=== PATIENT | male | born 1995 ===

== ENCOUNTER 2017-05-13 16:22 | Emergency (ER) | payer BC ==
--- NOTE | 2017-05-13 19:05 | Emergency Department Record ---
History of Present Illness - General Chief complaint: Extremity Problem Stated complaint: INGROWN TOENAIL ON LEFT FOOT Time Seen by Provider: 05/13/17 19:03 Source: Patient Mode of Arrival: Ambulatory Limitations: No limitations - History of Present Illness Initial comments: 21 yo male presents to ED with a CC of an ingrown toenail to the left great toe for several weeks. Patient reports that he has been performing warm soaks to the toe intermittently, patient denies fevers, chills, or drainage from the toe. Patient reports a history of similar symptoms in the past as well, denies health problems at her baseline. MD Complaint: Extremity pain Onset/Timin -: Week(s) Location: Left, Foot History of Same: Yes Severity scale (1-10): 5 Quality: Aching Consistency: Constant, Getting worse Improves with: Rest - Related Data Previous Rx's Medication Instructions Recorded Cephalexin [Keflex] 500 mg PO QID #28 cap 05/13/17 Allergies Allergy/AdvReac Type Severity Reaction Status Date / Time No Known Drug Allergies Allergy Verified 05/13/17 16:55 Travel Screening - Travel/Exposure Within Last 30 Days Have you traveled within the last 30 days?: No - Travel/Exposure Within Last Year Have you traveled outside the [place] in the last year?: No - Additonal Travel Details Have you been exposed to anyone with a communicable illness?: No - Travel Symptoms Symptom Screening: None Review of Systems Constitutional: Denies: Chills, Fever, Malaise, Night sweats Eyes: Denies: Eye discharge, Eye pain ENT: Denies: Congestion, Ear pain, Epistaxis Respiratory: Denies: Cough, Dyspnea Cardiovascular: Denies: Chest pain, Dyspnea on exertion Endocrine: Denies: Fatigue, Heat or cold intolerance Gastrointestinal: Denies: Constipation, Vomiting Genitourinary: Denies: Incontinence, Retention Musculoskeletal: Reports: Other (left great toe pain). Denies: Arthralgia, Back pain, Gout, Joint swelling Skin: Denies: Bruising, Change in color Neurological: Denies: Abnormal gait, Confusion, Headache, Numbness, Tingling, Tremors Psychiatric: Denies: Anxiety Hematological/Lymphatic: Denies: Anemia, Blood Clots Past Medical History - SOCIAL HISTORY Smoking Status: Never smoker Alcohol Use: None Drug Use: None - RESPIRATORY Hx Asthma: Yes (sports induced) - CARDIOVASCULAR Hx Cardio Disorders: No - NEURO Hx Neuro Disorders: No - GI Hx GI Disorders: No - Hx Genitourinary Disorders: No - ENDOCRINE Hx Endocrine Disorders: No - MUSCULOSKELETAL Hx Musculoskeletal Disorders: No - PSYCH Hx Psych Problems: No - HEMATOLOGY/ONCOLOGY Hx Hematology/Oncology Disorders: No Family Medical History Any Significant Family History?: Yes Physical Exam - General General Appearance: Alert, Oriented x3, Cooperative, No acute distress Limitations: No limitations - Head Head exam: Atraumatic, Normocephalic, Normal inspection Head exam detail: negative: Abrasion, Contusion, Patricio's sign, General tenderness, Hematoma, Laceration - Eye Eye exam: Normal appearance. negative: Conjunctival injection, Periorbital swelling, Periorbital tenderness, Scleral icterus - ENT Ear exam: negative: Auricular hematoma, Auricular trauma Nasal Exam: negative: Active bleeding, Discharge, Dried blood, Foreign body Mouth exam: negative: Drooling, Laceration, Muffled voice, Tongue elevation - Neck Neck exam: Normal inspection. negative: Meningismus, Tenderness - Respiratory Respiratory exam: Normal lung sounds bilaterally. negative: Respiratory distress, Rhonchi, Stridor, Wheezes - Cardiovascular Cardiovascular Exam: Regular rate, Normal rhythm, Normal heart sounds - GI/Abdominal GI/Abdominal exam: Soft. negative: Distended, Rebound, Rigid, Tenderness - Rectal Rectal exam: Deferred - exam: Deferred - Extremities Extremities exam: Tenderness, Other (TTP resulting from an ingrown toenail to the left lateral great toenail, mild erythema is present, no evidence for paronychia or abscess on exmaination). negative: Calf tenderness, Pedal edema - Back Back exam: Denies: CVA tenderness (R), CVA tenderness (L) - Neurological Neurological exam: Alert, Normal gait, Oriented X3 - Psychiatric Psychiatric exam: Normal affect, Normal mood - Skin Skin exam: Normal color. negative: Abrasion Type of lesion: negative: abrasion Course Vital Signs 05/13/17 16:48 Temperature 98.8 F Pulse Rate 71 Respiratory 16 Rate Blood Pressure 138/73 Pulse Ox 97 - Reevaluation(s) Reevaluation #1: 05/13/17 19:10 Patient was seen and examined, offered several times to anesthetize the great toe and perform a partial nail removal to facilitate healing the left great toe. After discussion with the patient, he would like to continue warm soaks and antibiotics with instructions to follow-up with Dr. Wellington in the [facility] in 3 days. Will initiate treatment with Keflex for possible early infection. Patient appears stable for discharge at this time. Disposition Disposition: Discharge Clinical Impression: Ingrown toenail Disposition: Home, Self-Care Condition: (2) Stable Instructions: Ingrown Nail (ED) Additional Instructions: Return to ED if your symptoms worsen or if you have any concerns. Keflex as directed. Warm soaks. Follow-up with Dr. Wellington in 3 days in the [facility] as directed. Prescriptions: Cephalexin [Keflex] 500 mg PO QID #28 cap Referrals: ALEKSANDAR WELLINGTON [DOCTOR OF PODIATRY MEDICINE] - [facility] [Provider Group] Forms: Patient Portal Access Time of Disposition: 19:04 Quality - Quality Measures Quality Measures: N/A - Blood Pressure Screening Does Patient Have Any of the Following: No Blood Pressure Classification: Pre-Hypertensive BP Reading Systolic Measurement: 138 Diastolic Measurement: 73 Screening for High Blood Pressure: < Pre-Hypertensive BP, F/U Documented > [ [id number]] Pre-Hypertensive Follow-up Interventions: Referral to alternative/primary care provider.
== END 2017-05-13 19:40 | disposition home or self-care (01) ==
LOC: ER 16:22
DX: L60.0 Ingrowing nail (principal)
CPT/HCPCS: 11750; 99283